=== PATIENT | female | born 1980 | race African-American/Black ===

== ENCOUNTER 2021-09-28 21:20 | Emergency (ER) | payer MEDICAID ==
[~2021-09-28] VITALS: Ht 149.9 cm; Wt 71.0 kg
[2021-09-28 21:28] VITALS: BP 150/80
[2021-09-29] MEDS ORDERED: LORAZEPAM 1MG TABLET PO ONE (02:00)
[2021-09-29 03:08] LABS: BASOPHILS % 0.7 % (0.0-2.0); EOSINOPHILS % 3.2 % (0.0-5.0); HEMATOCRIT. 41.6 % (36.0-48.0); HEMOGLOBIN. 14.2 g/dL (12.0-16.0); LYMPHOCYTES % 37.2 % (20.0-50.0); MEAN CORPUSCULAR HEMOGLOBIN 30.1 pg (28.0-32.0); MEAN CORPUSCULAR VOLUME 88.5 fL (81.0-99.0); MEAN PLATELET VOLUME 6.8 fl (7.4-10.4); MONOCYTES % 8.5 % (2.0-8.0); NEUTROPHILS % 50.4 % (40.0-76.0); PLATELET 293 x1000/uL (130-400); RED BLOOD CELL COUNT 4.71 mill/uL (4.2-5.4); RED CELL DISTRIBUTION WIDTH 14.1 % (11.6-14.6)
[2021-09-29 03:16] LABS: CHLORIDE 105 mEq/L (98-107)
== END 2021-09-29 04:50 | disposition home or self-care (01) ==
LOC: ER 21:20
DX: R13.10 Dysphagia, unspecified (principal); F20.9 Schizophrenia, unspecified; E78.00 Pure hypercholesterolemia, unspecified; E11.9 Type 2 diabetes mellitus without complications; Z98.890 Other specified postprocedural states; Z88.1 Allergy status to other antibiotic agents
CPT/HCPCS: 36415; 80053; 85025; 99283

== ENCOUNTER 2021-12-25 23:14 | Emergency (ER) | payer MEDICAID ==
[~2021-12-25] VITALS: Ht 149.9 cm; Wt 76.2 kg
[2021-12-26 01:47] LABS: BG BASE EXCESS -3.2 mmol/L (-2.0-2.0); BG DEOXYHEMOGLOBIN 3.4 % (0.0-5.0); BG FRACTION INSPIRED OXYGEN 21; BG HCO3 ACT 21.2 mmol/L (22.0-26.0); BG OXYGEN SATURATION 95.8 % (92.0-98.5); BG OXYHEMOGLOBIN 76.6 % (94.0-97.0); BG PCO2 36.1 mmHg (35.0-45.0); BG PH 7.386 (7.350-7.450); BG SAMPLE SITE RIGHT RADIAL; BG TOTAL HEMOGLOBIN 14.6 g/dL (12.0-18.0); BG VENT MODE NASAL CANNULA
[2021-12-26 05:00] VITALS: BP 123/76
[2021-12-26 05:03] LABS: BG BASE EXCESS -1.3 mmol/L (-2.0-2.0); BG CARBOXYHEMOGLOBIN 4.2 % (0.5-1.5); BG DEOXYHEMOGLOBIN 0.4 % (0.0-5.0); BG FRACTION INSPIRED OXYGEN 100; BG HCO3 ACT 23.4 mmol/L (22.0-26.0); BG METHEMOGLOBIN 0.4 % (0.0-1.5); BG OXYGEN SATURATION 99.6 % (92.0-98.5); BG PCO2 39.7 mmHg (35.0-45.0); BG PH 7.389 (7.350-7.450); BG PO2 336.6 mmHg (75.0-100.0); BG SAMPLE SITE LEFT RADIAL; BG TOTAL HEMOGLOBIN 14.6 g/dL (12.0-18.0); BG VENT MODE MASK - NRB
== END 2021-12-26 05:25 | disposition home or self-care (01) ==
LOC: ER 23:14
DX: T58.01XA Toxic effect of carbon monoxide from motor vehicle exhaust, accidental (unintentional), initial encounter (principal); R11.2 Nausea with vomiting, unspecified; E11.9 Type 2 diabetes mellitus without complications; F20.9 Schizophrenia, unspecified; E78.00 Pure hypercholesterolemia, unspecified; F17.210 Nicotine dependence, cigarettes, uncomplicated; Z88.1 Allergy status to other antibiotic agents; Y92.89 Other specified places as the place of occurrence of the external cause
CPT/HCPCS: 36600; 82375; 82805; 87426; 93005; 99284